=== PATIENT | female | born 1985 | race Caucasian/White ===

== ENCOUNTER 2020-10-26 15:40 | Emergency (ER) | payer BC, OTHER ==
[~2020-10-26] VITALS: Ht 160 cm; Wt 72.3 kg
[~2020-10-26 15:40] MED LIST: DOCU-131 PO; IBUP-1222 PO
--- NOTE | 2020-10-26 16:11 | NUR ---
Pt in gown, placed on bedside monitor for BP and SpO2 with warm blanket and call light provided and in reach. web assistant completed at this time, and MD entered for exam with noted meds and US to be ordered
[2020-10-26] MEDS ORDERED: KETOROLAC 30 MG/1 ML ONE (16:22)
--- NOTE | 2020-10-26 16:24 | NUR ---
IM Toradol given for pain with aseptic technique as per MD orders. Pt tolerated without c/o verbalized.
[2020-10-26] MEDS ORDERED: KETOROLAC 30 MG/1 ML IM ONE (16:30)
--- NOTE | 2020-10-26 17:26 | NUR ---
Pt states good effect noted after medical accounts receivable specialist on reassessment. Rates pain in RLE 2 now. US tech at bedside for exam.
[2020-10-26 18:22] VITALS: BP 121/62
== END 2020-10-26 18:24 | disposition home or self-care (01) ==
LOC: ED 16:47
DX: M54.16 Radiculopathy, lumbar region (principal); M25.551 Pain in right hip; M79.662 Pain in left lower leg; M79.652 Pain in left thigh; E03.9 Hypothyroidism, unspecified
CPT/HCPCS: 93971; 96372; 99284; J1885